=== PATIENT | male | born 1975 | race Caucasian/White ===

== ENCOUNTER → 2023-03-30 11:25 | Outpatient (BNVA) | payer MEDICAID, SELFPAY | PROVIDERS: Visit Provider Nurse Practitioner | DX: I25.2 Old myocardial infarction (principal); Z98.1 Arthrodesis status | CPT/HCPCS: 80053; 80061 ==

== ENCOUNTER 2023-04-15 11:34 | Outpatient (CLI) | payer SELFPAY ==
[2023-04-15 12:46] VITALS: BP 133/84; PULSE 118; BMI 27.2
--- NOTE | 2023-04-15 12:47 | ECG_ITS ---
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 Interpretive Statements Lung unchanged pre/post procedure Intraprocedure shortess of breath; Palpitations Symptoms resoled by discharge PROCEDURE: At the baseline, the patient's blood pressure was 128/82 with a heart rate of 81. The baseline electrocardiogram showed normal sinus rhythm with T inversions in lead V1 to V5, II, III and aVF. Nonspecific T wave changes in the lateral leads. Some nonspecific ST changes. The patient exercised for 10 minutes and 37 seconds on a standard Jamie protocol. Patient attained a maximum heart rate of 199 and beats per minute(115% of the maximum predicted heart rate) with a blood pressure at the peak exercise of 166/52 mm Hg. The EKG at the peak exercise revealed nonspecific T wave changes. Occasional PVCs. Patient did not have any chest pain or any significant cardiac arrhythmias with the exercise During the recovery phase, there were no new changes. Occasional PVCs are noted Blood pressure at the end of the recovery phase was 158/60 mm Hg with a heart rate of 126 per minute. CONCLUSION: 1. Nonspecific EKG response to treadmill exercise 2. No exercise-induced chest pain or cardiac arrhythmia 3. Good exercise tolerance, attained a maximum of 13.5 METs 4. The heart rate recovery was 15 Electronically Signed On 04-16-2023 19:56:00 CDT by Azeem Aguilar M.D. [id number]
== END 2023-04-15 11:35 | disposition home or self-care (01) ==
LOC: CDL 11:34
PROVIDERS: PCP Nurse Practitioner; Visit Provider Internal Medicine Cardiovascular Disease
DX: I25.2 Old myocardial infarction (principal)
CPT/HCPCS: 93017

== ENCOUNTER 2023-04-16 13:29 | Observation (INO) | payer SELFPAY ==
[2023-04-16] VITALS (10 sets, daily range): BP systolic 111–164; BP diastolic 70–100; PULSE 78–98; RESP 16–24; TEMP 36.2–36.8; O2SAT 96–100; BMI 27.2
--- NOTE | 2023-04-16 13:35 | ECG_ITS ---
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 Measurements Intervals [place] Rate: 82 P: 33 [place]: 173 QRS: 30 QRSD: 94 T: -37 QT: 413 QTc: 485 Interpretive Statements SINUS RHYTHM MARKED T-WAVE ABNORMALITY, CONSIDER ANTEROLATERAL ISCHEMIA [-0.5+ mV T-WAVE IN I/aVL/V3-V6] MODERATE T-WAVE ABNORMALITY, CONSIDER INFERIOR ISCHEMIA [-0.1+ mV T-WAVE IN II/aVF] INTERPRETATION BASED ON A DEFAULT AGE OF 40 YEARS No previous ECG available for comparison Electronically Signed On 04-16-2023 21:27:24 CDT by Azeem Aguilar M.D. [id number]
[2023-04-16] MEDS: nitroglycerin 1 gm/inch oint Pkt 1 INCH TOPICAL (14:13)
[2023-04-16] MEDS: morphine 4 mg/mL SDV 1 mL IVP (14:13)
[2023-04-16 14:21] LABS: Basophils % 0.5 %; Eosinophils # 0.1 10^3/uL (0.0-0.8); Eosinophils % 0.9 %; Hematocrit 42.4 % (37-53); Lymphocytes # 1.2 10^3/uL (0.8-4.8); Lymphocytes % 20.3 %; Mean Corpuscular HGB Conc 34.2 g/dL (30-55); Mean Corpuscular Hemoglobin 30.1 pg (27-33); Mean Corpuscular Volume 88.1 fl (82-101); Mean Platelet Volume 8.8 fL (7.4-10.4); Monocytes # 0.3 10^3/uL (0.2-0.9); Monocytes % 5.8 %; Neutrophils # 4.25 10^3/uL (1.8-7.7); Neutrophils % 72.3 %; Nucleated Red Blood Cells % 0 %; Platelet Count 373 10^3/cmm (157-399); Red Blood Count 4.81 10^6/uL (3.85-5.65); Red Cell Distribution Width 11.9 % (12.1-15.1); White Blood Count 5.87 10^3/uL (3.29-11.43)
--- NOTE | 2023-04-16 14:25 | CTR_ITS ---
PROCEDURE INFORMATION: Exam: CTA Chest With Contrast CTA Abdomen With Contrast Exam date and time: 04/16/2023 2:57 PM Age: 47 years old Clinical indication: Left-sided; Other: Left sided chest pain; Prior surgery; Surgery date: 3-7 days post-operative; Surgery type: Stents; Additional info: For dissection TECHNIQUE: Imaging protocol: Computed tomographic angiography of the chest with contrast. Exam focused on the arteries. Computed tomographic angiography of the abdomen with contrast. Exam focused on the arteries. 3D rendering (Not supervised by radiologist): MIP and/or 3D reconstructed images were created by the technologist. Radiation optimization: All CT scans at this facility use at least one of these dose optimization techniques: automated exposure control; mA and/or kV adjustment per patient size (includes targeted exams where dose is matched to clinical indication); or iterative reconstruction. Contrast material: OMNI 350; Contrast volume: 100 ml; Contrast route: INTRAVENOUS (IV); REPORTING DATA: Count of CT and Cardiac NM exams in prior 12 months: This patient has received 0 known CTs and 0 known cardiac nuclear medicine studies in the 12 months prior to the current study. COMPARISON: No relevant prior studies available. RADIATION DOSE METRICS: Total DLP (mGy-cm): 964.55 FINDINGS: VASCULATURE: Pulmonary arteries: Normal. No pulmonary emboli. Aorta: No aortic aneurysm. No aortic dissection. Normal variant 4 vessel left aortic arch. Celiac trunk and mesenteric arteries: No occlusion or significant stenosis. Renal arteries: No occlusion or significant stenosis. CHEST: Lungs: No consolidation. No masses. Chronic appearing filling defect within a dilated subsegmental right upper lobe airway with small distal nodules, some of which are calcified. Few additional scattered pulmonary nodules in the right lung, 3 mm right apical nodule on axial image 31 of series 7, 5 mm right apical nodule on axial image 34 of series 7, 6 mm right upper lobe nodule on axial image 60 of series 7, and 5 mm subpleural right middle lobe nodule on axial image 95 of series 7. Pleural spaces: Unremarkable. No pneumothorax. No pleural effusion. Heart: Unremarkable. No cardiomegaly. No pericardial effusion. Coronary arteries: Moderate coronary artery calcification. Diaphragm: Small hiatal hernia. ABDOMEN AND PELVIS: Liver: No mass. Gallbladder and bile ducts: Unremarkable. No calcified stones. No ductal dilation. Pancreas: Unremarkable. No mass. No ductal dilation. Spleen: Unremarkable. No splenomegaly. Adrenal glands: Unremarkable. No mass. Kidneys and ureters: Unremarkable. No solid mass. No hydronephrosis. Stomach and bowel: No dilatation to suggest obstruction. Colonic diverticulosis. Intraperitoneal space: Unremarkable. No free air. No significant fluid collection. Lymph nodes: No suspicious lymphadenopathy. Hyperdense mediastinal and right hilar lymph nodes, likely calcified. Bones/joints: Unremarkable. No acute fracture. Soft tissues: Small fat containing umbilical hernia. Mild wcdp-lynjbgw-nryp-right gynecomastia. CT/[place]d [id number] IMPRESSION: 1. No acute findings. Specifically, no aortic dissection. 2. Moderate coronary artery calcification. 3. Multiple pulmonary nodules measuring up to 6 mm. For patients at low risk (minimal or absent history of smoking and of other known risk factors), recommend CT Chest at 3-6 months, then consider CT Chest at 18-24 months. For patients at high risk (history of smoking or of other known risk factors), recommend CT Chest at 3-6 months, then CT Chest at 18-24 months. (Reference: Cher) REFERENCES: Cher Aleman et al. Guidelines for Management of Incidental Pulmonary Nodules Detected on CT Images: From the Fleischner Society 2017. Radiology. 2017;284(1):228-243.
[2023-04-16 14:31] LABS: INR 0.89 (0.8-1.2)
[2023-04-16 14:32] LABS: Partial Thromboplastin Time 27.2 SECONDS (23.9-36.7)
[2023-04-16 14:35] LABS: D Dimer 0.33 ug/mLFEU (0-0.59)
[2023-04-16 14:44] LABS: Alanine Aminotransferase 35 U/L (0-41); Albumin Level 4.6 g/dL (3.5-5.2); Alkaline Phosphatase 144 U/L (40-130); Aspartate Amino Transferase 22 U/L (0-40); Blood Urea Nitrogen 10 mg/dL (6-20); Calcium 9.8 mg/dL (8.5-10.5); Carbon Dioxide 23 mmol/L (22-29); Chloride 102 mmol/L (98-107); Globulin 3.2 g/dL (1.3-4.6); Glomerular Filtration Rate 103.2 mL/min (90-130); Glucose 140 mg/dL (65-115); Osmolality Calculated 287 mOsm/kg (285-295); Sodium 138 mmol/L (136-145); Total Bilirubin 0.5 mg/dL (0.15-1.2); Total Protein 7.8 g/dL (6.6-8.7)
[2023-04-16 14:45] LABS: Troponin(5th) Baseline 8 ng/L (0-15)
[2023-04-16] MEDS: iohexol 350 mg/mL 500 mL Btl (per mL) IV (15:05)
[2023-04-16] MEDS: LORazepam 2 mg/mL INJ 1 mL IVP (15:22)
--- NOTE | 2023-04-16 16:00 | ECG_ITS ---
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 Measurements Intervals [place] Rate: 87 P: 41 [place]: 185 QRS: 53 QRSD: 109 T: 24 QT: 408 QTc: 492 Interpretive Statements SINUS RHYTHM INCOMPLETE RIGHT BUNDLE BRANCH BLOCK [90+ ms QRS DURATION, TERMINAL R IN V1/V2, 40+ ms S IN I/aVL/V4/V5/V6] MARKED T-WAVE ABNORMALITY, CONSIDER ANTEROLATERAL ISCHEMIA [-0.5+ mV T-WAVE IN I/aVL/V3-V6] MODERATE T-WAVE ABNORMALITY, CONSIDER INFERIOR ISCHEMIA [-0.1+ mV T-WAVE IN II/aVF] Compared to ECG 04/16/2023 13:35:09 Incomplete right bundle-branch block now present T-wave abnormality still present Possible ischemia still present Electronically Signed On 04-16-2023 21:29:40 CDT by Azeem Aguilar M.D. [id number]
--- NOTE | 2023-04-16 16:27 | W.ED.CHESTPA ---
HPI - Chest Pain General: Chief Complaint: Chest Pain Stated Complaint: chest pain Time Seen by Provider: 04/16/23 13:54 History of Present Illness: 47 years old male with recent coronary artery and stent placement about 3 weeks ago while he was in [facility]. Patient presents emergency room today with chest pain that started around noon and described the pain as sharp/tearing sensation from the left side of his chest with severity of 9 out of 10. Patient had been taking aspirin and couple of nitro with minimal effect. Patient reveals that this pain felt the same way he felt when he had his GA 3 weeks ago. Patient with some nausea but no vomiting. Denies coughing or vomiting blood. No leg swelling or calf tenderness. No fever or chills. Associated symptoms: Reports palpitations; Deny fever(s) Review of Systems General: Reports: 10 or more systems reviewed and unremarkable except in HPI and below Const: Denies: fever(s), chills, body aches or change in appetite Card: Reports: chest pain and palpitations Psych: Reports: anxiety; Denies: panic attacks, sleeping less, sleeping more, loss of interest, change in appetite, irritability, visual hallucinations, tactile hallucinations, suicidal ideation or homicidal ideation [facility] ED PFSH: Medical History History of ST elevation myocardial infarction (STEMI) Mar 2023 Surgical History History of fusion of cervical spine C5 and C6 Family History Denies family history of Diabetes Clotting disorder Chronic kidney disease (CKD) Bleeding disorder Cancer Hypertension Stroke Social History Smoking and tobacco/nicotine status: former use of tobacco/nicotine Quit status (tobacco/nicotine): has quit using Year quit tobacco: 2013 Former quit date comment: 0.5 pack per day x 30 years Alcohol intake: current Alcohol intake frequency: few times a week Substance/Drug Use: never Physical Exam Const: COMMON NORMALS: no acute distress, average body habitus, patient oriented x3, no limitations, healthy appearing, alert and well nourished Neck/C-Spine: COMMON NORMALS: no JVD Chest: COMMONS NORMALS: normal inspection of the chest, normal palpation of entire chest wall, normal inspection of the breasts and normal palpation of the breasts Breast/axilla inspection: Yes normal inspection of the breasts BREAST/AXILLA PALPATION: Yes normal palpation of the breasts Resp: COMMON NORMALS: normal respiratory effort, No retractions, No use of accessory muscles, clear to auscultation bilaterally and percussion normal AUSCULTATION: clear to auscultation bilaterally PERCUSSION: percussion normal Cardio: COMMON NORMALS: no JVD, regular rate, regular rhythm, S1 normal heart sound present, S2 normal heart sound present, No gallops present (Cardio), No clicks present (Cardio), No murmurs present (Cardio), No rub (Cardio) and Peripheral pulses 2+ throughout RATE: regular rate RHYTHM: regular rhythm HEART SOUNDS: S1 normal heart sound present and S2 normal heart sound present PERIPHERAL PULSES: Peripheral pulses 2+ throughout GI: COMMON NORMALS: Normal to inspection, nondistended, normoactive bowel sounds present, Soft to palpation, non-tender, No hepatosplenomegaly present, no masses and no bruits PALPATION: Yes Soft to palpation and Yes No hepatosplenomegaly present Extremity: COMMON NORMALS: normal to inspection, full ROM, capillary refill normal, no joint enlargement, no clubbing, cyanosis or edema, no calf tenderness and no pedal edema Neuro: COMMON NORMALS: patient oriented x3 SENSORIUM/ORIENTATION: Yes alert Psych: COMMON NORMALS: Normal thought process present and speech normal APPEARANCE: Yes grossly normal SPEECH: Yes normal speech MOOD & AFFECT: Yes anxious THOUGHT PROCESS: Normal thought process present Course Reevaluation(s): Reevaluation #1: At 4 PM patient was evaluated and reexamined. Patient was resting comfortably at this time on his phone without any acute distress. Denies any chest pain, nausea, vomiting or headache. Consultations: Consultation #1: At 2:06 PM discussed patient with Dr. Aguilar and he recommended heparin drip after CT scan. Consultation #2: At 4 PM discussed patient with the hospitalist. Patient be admitted for further evaluation and treatment. Vital Signs: Vital signs: Vital Signs Temperature 97.8 F 04/16/23 20:00 Pulse Rate 91 04/16/23 20:00 Respiratory Rate 17 04/16/23 20:00 Blood Pressure 111/81 04/16/23 20:00 Pulse Oximetry 96 04/16/23 20:00 Oxygen Delivery Me thod Room Air 04/16/23 20:00 MDM - Chest Pain Medical Decision Making Upon present emergency room patient was made comfortable patient was given aspirin and nitro. Patient was given morphine IV. An extensive work-up including CBC, CMP, troponin x2, CT scan and x-ray. I spoke with Dr. Aguilar at 2:06 PM. He agree with current treatment and recommended getting a CT scan to make sure there is a section. I discussed CT finding with the patient and the hospitalist. She will be admitted for further evaluation and treatment. Differential Diagnosis Likely acute massive pulmonary embolism, acute respiratory failure, acute myocardial infarction, cardiac arrest and sudden cardiac Lab Data 04/16/23 14:11 04/16/23 14:11 Radiology Impressions Chest/Abdomen CTA 04/16/23 14:25 IMPRESSION: 1. No acute findings. Specifically, no aortic dissection. 2. Moderate coronary artery calcification. 3. Multiple pulmonary nodules measuring up to 6 mm. For patients at low risk (minimal or absent history of smoking and of other known risk factors), recommend CT Chest at 3-6 months, then consider CT Chest at 18-24 months. For patients at high risk (history of smoking or of other known risk factors), recommend CT Chest at 3-6 months, then CT Chest at 18-24 months. (Reference: Cher) REFERENCES: Cher Aleman, et al. Guidelines for Management of Incidental Pulmonary Nodules Detected on CT Images: From the Fleischner Society 2017. Radiology. 2017;284(1):228-243. Laboratory Results WBC 5.87 10^3/uL (3.29-11.43) 04/16/23 14:11 RBC 4.81 10^6/uL (3.85-5.65) 04/16/23 14:11 Hgb 14.50 g/dL (11.27-16.99) 04/16/23 14:11 Hct 42.4 % (37-53) 04/16/23 14:11 MCV 88.1 fl (82-101) 04/16/23 14:11 MCH 30.1 pg (27-33) 04/16/23 14:11 MCHC 34.2 g/dL (30-55) 04/16/23 14:11 RDW 11.9 % (12.1-15.1) L 04/16/23 14:11 Plt Count 373 10^3/cmm (157-399) 04/16/23 14:11 MPV 8.8 fL (7.4-10.4) 04/16/23 14:11 Neut % (Auto) 72.3 % 04/16/23 14:11 Lymph % (Auto) 20.3 % 04/16/23 14:11 [place] % (Auto) 5.8 % 04/16/23 14:11 Eos % (Auto) 0.9 % 04/16/23 14:11 Baso % (Auto) 0.5 % 04/16/23 14:11 Neut # (Auto) 4.25 10^3/uL (1.8-7.7) 04/16/23 14:11 Lymph # (Auto) 1.2 10^3/uL (0.8-4.8) 04/16/23 14:11 [place] # (Auto) 0.3 10^3/uL (0.2-0.9) 04/16/23 14:11 Eos # (Auto) 0.1 10^3/uL (0.0-0.8) 04/16/23 14:11 Baso # (Auto) 0.0 10^3/uL (0.0-0.1) 04/16/23 14:11 Nucleated RBC % (auto) 0 % 04/16/23 14:11 Nucleated RBCs # 0.0 /100WBC 04/16/23 14:11 PT 12.30 SECONDS (12.1-14.9) 04/16/23 14:11 INR 0.89 (0.8-1.2) 04/16/23 14:11 APTT 27.2 SECONDS (23.9-36.7) 04/16/23 14:11 D-Dimer 0.33 ug/mLFEU (0-0.59) 04/16/23 14:11 Sodium 138 mmol/L (136-145) 04/16/23 14:11 Potassium 4.0 mmol/L (3.5-5.1) 04/16/23 14:11 Chloride 102 mmol/L (98-107) 04/16/23 14:11 Carbon Dioxide 23 mmol/L (22-29) 04/16/23 14:11 Anion Gap 17.0 (5-19) 04/16/23 14:11 BUN 10 mg/dL (6-20) 04/16/23 14:11 Creatinine 0.8 mg/dL (0.7-1.2) 04/16/23 14:11 GFR Calculation 103.2 mL/min (90-130) 04/16/23 14:11 Glucose 140 mg/dL (65-115) H 04/16/23 14:11 Calculated Osmolality 287 mOsm/kg (285-295) 04/16/23 14:11 Calcium 9.8 mg/dL (8.5-10.5) 04/16/23 14:11 Magnesium 2.2 mg/dL (1.7-2.3) 04/16/23 16:09 Total Bilirubin 0.5 mg/dL (0.15-1.2) 04/16/23 14:11 AST 22 U/L (0-40) 04/16/23 14:11 ALT 35 U/L (0-41) 04/16/23 14:11 Alkaline Phosphatase 144 U/L (40-130) H 04/16/23 14:11 Troponin T Baseline 8 ng/L (0-15) 04/16/23 14:11 Troponin T 120 Minute 8.63 ng/L (0-15) 04/16/23 16:09 Delta Troponin T 0.63 ABS# (0-10) 04/16/23 16:09 Total Protein 7.8 g/dL (6.6-8.7) 04/16/23 14:11 Albumin 4.6 g/dL (3.5-5.2) 04/16/23 14:11 Globulin 3.2 g/dL (1.3-4.6) 04/16/23 14:11 XR interpretation done by ED provider, pending radiology final review EKG Data EKG 1: Interpretation: EKG shows sinus rhythm rate of 82. With some flipped T wave in V2 V4 V5 and V3. Interval 173 QTc 413 EKG 2: Interpretation: Sinus rhythm rate of [address] changes including T wave inversion IV for V2 V5 V3. [place] interval 181 QT 453 EKG 3: Interpretation: Sinus rhythm rate of 87 with incomplete right bundle branch block with T wave inversion at V2 V3 V4 V5. No ST elevation. [place] interval 185 QT 4 8 QRS duration 109. Critical Care Time Critical Care Time: Critical Care Time: Yes Total Critical Care Time: 45 Attestation: Time spent discussing patient with family time spent reviewing past medical history and records. 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
[2023-04-16] MEDS: heparin 5,000 unit/mL INJ 1 mL 4000 UNIT IVP (17:02)
[2023-04-16] MEDS: heparin drip 25,000 UNIT/500 ML PREMIX 20.68 UNIT IV (17:03)
[2023-04-16 17:25] LABS: Troponin 5 2HR 8.63 ng/L (0-15); Troponin 5 2HR Delta 0.63 ABS# (0-10)
--- NOTE | 2023-04-16 17:59 | PM.HP ---
Providers/Chief Complaint Admitting Physician: Matty Hammer Primary Care Provider: Winter Modi APN Chief Complaint: chest pain History of Present Illness Armond Crawford is a 47 year old male with history of HI on March 26 status post coronary angiogram and stenting of LAD, there were reportedly 2 additional stenosed vessels which did not get stented, though it is unclear whether staged procedure was planned. He followed up with cardiology here on April 06 as he was still having symptoms, was referred for additional assessment by stress testing which she had yesterday. He states has not gotten the results of the stress test yet. He came into ER due to concerning symptoms of squeezing in his left-sided chest radiating to the neck. He states symptoms started with palpitations, subsequently his heart felt like it was racing and he started feeling tingling in his extremities. He then felt like there was a vessel that ruptured and started whooshing blood just to help with steroid him, and he became concerned that there something had ruptured. He did take nitroglycerin. He states he had not missed any of his medications other than holding beta-maddie preceding the stress test. He received additional nitroglycerin in ER. Cardiology was contacted, he was started on heparin drip due to concern for unstable angina. At the moment he is chest pain-free. Work-up in ER included CT angiogram chest abdomen pelvis, findings nonacute, no dissection, moderate coronary artery calcification. Multiple pulmonary nodules measuring up to 6 mm. EKG with incomplete RBBB, T wave inversions in multiple leads. Baseline troponin is WNL Review of Systems Const: Denies: fever(s), chills, body aches or malaise ENMT: Denies: throat pain, oral sores or ear or mastoid pain Card: Reports: chest pain, palpitations and lightheadedness Resp: Denies: dyspnea, productive cough, change in phlegm color or hemoptysis GI: Denies: nausea, vomiting, diarrhea or constipation : Denies: flank pain, difficulty urinating, urinary frequency or hematuria Musc: Denies: back pain, joint swelling or joint redness Skin/Breast: Denies: rash or new lesions Medications/Allergies Home Medications Medication Instructions Recorded Confirmed Last Taken Type aspirin 81 mg tablet,delayed 81 mg PO DAILY 03/30/23 04/06/23 Unknown History release (Adult Aspirin Regimen) atorvastatin 80 mg tablet 80 mg PO DAILY 03/30/23 04/06/23 Unknown History clopidogrel 75 mg tablet 75 mg PO DAILY 03/30/23 04/06/23 Unknown History cyclobenzaprine 5 mg tablet 5 mg PO BEDTIME PRN muscle spasm 03/30/23 04/06/23 Unknown Rx #30 tabs metoprolol succinate 50 mg 50 mg PO DAILY 03/30/23 04/06/23 Unknown History tablet,extended release 24 hr nitroglycerin 0.4 mg sublingual 0.4 mg sublingual Q5M PRN chest 03/30/23 04/06/23 Unknown Rx tablet pain #30 tabs Allergies Allergy/AdvReac Type Severity Reaction Status Date / Time gold Au 198 Allergy Unknown Unknown Unverified 04/16/23 18:40 silver Allergy Unknown Unknown Unverified 04/16/23 18:40 PFSH Acute PFSH: Medical History History of ST elevation myocardial infarction (STEMI) Mar 2023 Surgical History History of fusion of cervical spine C5 and C6 Family History Denies family history of Diabetes Clotting disorder Chronic kidney disease (CKD) Bleeding disorder Cancer Hypertension Stroke Social History Smoking and tobacco/nicotine status: former use of tobacco/nicotine Quit status (tobacco/nicotine): has quit using Year quit tobacco: 2013 Former quit date comment: 0.5 pack per day x 30 years Alcohol intake: current Alcohol intake frequency: few times a week Substance/Drug Use: never Vitals/I&O/Wt Last Vital Signs Temp 98.3 F 04/16/23 13:38 Pulse 83 04/16/23 15:00 Resp 16 04/16/23 15:00 BP 164/100 04/16/23 14:12 Pulse Ox 100 04/16/23 14:30 O2 Del Method Room Air 04/16/23 13:38 Weight last 48 hrs Weight 86.183 kg Physical Exam Narrative: Accompanied by family. Const: COMMON NORMALS: patient oriented x3 and alert GENERAL APPEARANCE: cooperative ORIENTATION/CONSCIOUSNESS: Yes awake HENMT: COMMON NORMALS: oropharynx normal Neck/C-Spine: COMMON NORMALS: no JVD Resp: COMMON NORMALS: normal respiratory effort and clear to auscultation bilaterally AUSCULTATION: clear to auscultation bilaterally Cardio: COMMON NORMALS: no JVD, regular rhythm, S1 normal heart sound present, S2 normal heart sound present and No murmurs present (Cardio) RHYTHM: regular rhythm HEART SOUNDS: S1 normal heart sound present and S2 normal heart sound present GI: COMMON NORMALS: Normal to inspection, nondistended, normoactive bowel sounds present, Soft to palpation and non-tender PALPATION: Yes Soft to palpation Extremity: COMMON NORMALS: no joint enlargement and no pedal edema Neuro: COMMON NORMALS: patient oriented x3 and moves all extremities SENSORIUM/ORIENTATION: Yes alert Skin: COMMON NORMALS: no rashes or lesions noted GENERAL SKIN EXAM: no rashes or lesions noted Data 04/16/23 14:11 04/16/23 14:11 A&P Assessment and plan (1) Chest tightness: Squeezing, tightness in the left side of the chest, with history of recent HI at the end of March, stenting of LAD, additional stenotic areas identified, not stented at the time. Symptoms may have started with palpitations. He has been started on heparin drip with concern for unstable angina. Continue on aspirin and plavix, did not miss any doses. We will additionally assessed by TTE. Cardiology consulted in ER for consideration of additional assessment. N.p.o. after midnight with consideration of possible of angiogram. Continue heparin drip, monitor PTT with high risk medication, risk of bleeding. Otherwise D-dimer low. Low probability of PE. CT angiogram not suggestive of dissection or other large vessel abnormality. Monitor on telemetry for possible arrhythmia. Continue metoprolol. Nitroglycerin as needed. Requested records to be obtained from [facility]. Reviewed CBC, CMP, PT/INR, D-dimer, troponin. EKG. CTA chest abdomen pelvis. Reviewed ER documentation. Discussed with ER physician. (2) Palpitations: As above. Monitor on telemetry. Potassium okay. Check magnesium. TTE (3) Lung nodules: Multiple lung nodules noted on CT with recommendation for follow-up imaging. He has history of smoking. Attestations Medical Necessity Statement*: Place in observation for additional assessment and management of possible unstable angina and gentleman with recent HI, stenting of LAD, additional areas of stenosis, palpitations. Diagnoses Chest tightness R07.89 Palpitations R00.2 Lung nodules R91.8
--- NOTE | 2023-04-16 19:22 | PM.CONSULT ---
Providers/Reason For Consult Consulting Physician/Specialty*: PATRICIA Aguilar MD/cardiology Reason for Consult*: Patient with chest pain/tachycardia/history of recent myocardial infarction and PCI Requesting Physician: Dr. Hammer Attending Physician: Matty Hammer Primary Care Provider: Winter Modi APN History of Present Illness History of Present Illness Armond Crawford is a 47 year old male with a history of recent myocardial infarction and PCI, is admitted to the hospital through the emergency room, where he presented with complaints of chest pain and palpitations. Cardiology consult is requested for further evaluation recommendations. This patient apparently has no significant past medical history, was told to have heart attack 3 weeks ago while he was working in [facility]. He apparently started having heartburns which evolved into severe pain in the chest radiating to the left shoulder and to the left arm associated with shortness of breath and some dizziness. He had a emergency cardiac catheterization in the hospital which revealed high-grade lesion in the left anterior descending artery. He underwent PCI of this lesion. He was told to have a 70% blockage in another artery and a 91% blockage in one of the side branches. The details are not available. Ever since the intervention, patient continued to have some fluttering in the chest and occasional squeezing feeling. That may last for few seconds to few minutes and goes away by itself. He was seen by Dr. 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 Dr. Messer ordered a regular treadmill stress test and it was done yesterday. He exercised for 10 minutes and 37 seconds on a standard Jamie protocol. He attained to 115% of the maximal predicted heart rate. The EKG at the baseline showed diffuse T wave Inversions in the inferior and anterolateral leads.With peak exercise, there is no significant change in the EKG. according to the patient, he felt good after the exercise. This morning he was having a coffee and was playing videogames. He started having some dizzy feeling in the head associated with a fluttery feeling in the chest. He also had some squeezing sensation in the chest. The intensity of the symptoms were 1-4/10. He gradually started having more palpitations and squeezing sensation in the chest associated with some nausea and sweating. For these complaints, the ambulance was called in and was brought to the emergency room. So far he has no evidence of any myocardial injury. He is EKGs did not reveal any new changes. Currently, at the time of my examination, patient is feeling much better. He still may have some discomfort in the chest which is graded as 1/10. Patient had a cardiac catheterization and echocardiogram in [facility]. The results are not available at this time. Patient does not know much about his family. Apparently his mother after childbirth. He never knew his father. He has a remote history of smoking abuse, half to 1 pack a day which he quit 10 years ago. Social drinking. No other substance abuse. Review of Systems Narrative: CONSTITUTIONAL: No fever or chills. EYES: No blurring of vision or other visual disturbances lately. ENT: No hoarseness of voice, auditory disturbances or sore throat. CARDIOVASCULAR: As mentioned above. RESPIRATORY: No significant cough. GASTROINTESTINAL: No hematemesis or melena. GENITOURINARY: No dysuria or hematuria. INTEGUMENTARY: No skin rashes or history of skin cancer. NEURO: No transient ischemic attacks or amaurosis. PSYCHIATRIC: No history of psychosis or major depression. HEMATOLOGIC: No bleeding disorders or significant anemia. ENDOCRINE: No history of polyuria or polydipsia. MUSCULOSKELETAL: Patient had fusion of the cervical spine-C4-C5 and has chronic pain ALLERGY/IMMUNOLOGY: As mentioned above. Medications/Allergies Home Medications Medication Instructions Recorded Confirmed Last Taken Type aspirin 81 mg tablet,delayed 243 mg PO DAILY 03/30/23 04/16/23 04/16/23 13:00 History release (Adult Aspirin Regimen) atorvastatin 80 mg tablet 80 mg PO DAILY 03/30/23 04/16/23 04/16/23 14:00 History clopidogrel 75 mg tablet 75 mg PO DAILY 03/30/23 04/16/23 04/16/23 14:00 History cyclobenzaprine 5 mg tablet 5 mg PO BEDTIME PRN muscle spasm 03/30/23 04/16/23 Unknown Rx #30 tabs metoprolol succinate 50 mg 50 mg PO DAILY 03/30/23 04/16/23 04/16/23 14:00 History tablet,extended release 24 hr nitroglycerin 0.4 mg sublingual 0.4 mg sublingual Q5M PRN chest 03/30/23 04/16/23 04/16/23 13:00 Rx tablet pain #30 tabs Allergies Allergy/AdvReac Type Severity Reaction Status Date / Time gold Au 198 Allergy Unknown Unknown Unverified 04/16/23 18:40 silver Allergy Unknown Unknown Unverified 04/16/23 18:40 Current Medications Generic Name Dose Route Start Last Admin Trade Name Freq PRN Reason Stop Dose Admin Heparin Sodium/Sodium Chloride 25,000 unit in 500 mls @ 24.131 mls/hr 04/16/23 16:30 04/16/23 17:03 Heparin Drip IV 12 unit/kg/hr .[id number] NATHALIE 20.68 mls/hr Administration 14 UNIT/KG/HR PFSH Acute PFSH: Medical History History of ST elevation myocardial infarction (STEMI) Mar 2023 Surgical History History of fusion of cervical spine C5 and C6 Family History Denies family history of Diabetes Clotting disorder Chronic kidney disease (CKD) Bleeding disorder Cancer Hypertension Stroke Social History Smoking and tobacco/nicotine status: former use of tobacco/nicotine Quit status (tobacco/nicotine): has quit using Year quit tobacco: 2013 Former quit date comment: 0.5 pack per day x 30 years Alcohol intake: current Alcohol intake frequency: few times a week Substance/Drug Use: never Vitals/I&O/Wt Last Vital Signs Temp 98.3 F 04/16/23 13:38 Pulse 78 04/16/23 18:06 Resp 18 04/16/23 18:06 BP 164/100 04/16/23 14:12 Pulse Ox 98 04/16/23 18:06 O2 Del Method Room Air 04/16/23 13:38 Weight last 48 hrs Weight 190 lb Physical Exam Narrative: GENERAL: The patient is alert and oriented times three. Not in any acute distress. HEENT: No significant pallor, icterus or lymphadenopathy.Oral cavity: There are no mucous membrane lesions. NECK: Trachea appears to be central. No masses noted. No JVD or thyromegaly appreciated. RESPIRATORY: Chest is symmetrical. No intercostals muscle retraction or any accessory muscle activation. There is no chest wall tenderness. Breath sounds are heard bilaterally. No rales or rhonchi heard. No evidence of any consolidation. BREASTS: Deferred. HEART: The heart sounds are normal. No S3 or S4. No significant murmurs. No pericardial rub ABDOMEN: No vessel pulsations or distention. No tenderness. No organomegaly appreciated. Bowel sounds are normally heard. : Deferred. RECTAL: Deferred. LYMPHATIC: No lymphadenopathy noted in the neck. EXTREMITIES: No edema or cyanosis. No clubbing. He has a small knot in the right groin. No bruit MUSCULOSKELETAL: No acute joint deformities or swelling SKIN: There are no significant rashes or ecchymosis NEUROPSYCHIATRIC: The patient is alert and oriented x3. Appears to be in a good mood. No tremors or rigidity noted. Data 04/16/23 14:11 04/16/23 14:11 Other Labs: Laboratory Last Values WBC 5.87 10^3/uL (3.29-11.43) 04/16/23 14:11 RBC 4.81 10^6/uL (3.85-5.65) 04/16/23 14:11 Hgb 14.50 g/dL (11.27-16.99) 04/16/23 14:11 Hct 42.4 % (37-53) 04/16/23 14:11 MCV 88.1 fl (82-101) 04/16/23 14:11 MCH 30.1 pg (27-33) 04/16/23 14:11 MCHC 34.2 g/dL (30-55) 04/16/23 14:11 RDW 11.9 % (12.1-15.1) L 04/16/23 14:11 Plt Count 373 10^3/cmm (157-399) 04/16/23 14:11 MPV 8.8 fL (7.4-10.4) 04/16/23 14:11 Neut % (Auto) 72.3 % 04/16/23 14:11 Lymph % (Auto) 20.3 % 04/16/23 14:11 [place] % (Auto) 5.8 % 04/16/23 14:11 Eos % (Auto) 0.9 % 04/16/23 14:11 Baso % (Auto) 0.5 % 04/16/23 14:11 Neut # (Auto) 4.25 10^3/uL (1.8-7.7) 04/16/23 14:11 Lymph # (Auto) 1.2 10^3/uL (0.8-4.8) 04/16/23 14:11 [place] # (Auto) 0.3 10^3/uL (0.2-0.9) 04/16/23 14:11 Eos # (Auto) 0.1 10^3/uL (0.0-0.8) 04/16/23 14:11 Baso # (Auto) 0.0 10^3/uL (0.0-0.1) 04/16/23 14:11 Nucleated RBC % (auto) 0 % 04/16/23 14:11 Nucleated RBCs # 0.0 /100WBC 04/16/23 14:11 PT 12.30 SECONDS (12.1-14.9) 04/16/23 14:11 INR 0.89 (0.8-1.2) 04/16/23 14:11 APTT 27.2 SECONDS (23.9-36.7) 04/16/23 14:11 D-Dimer 0.33 ug/mLFEU (0-0.59) 04/16/23 14:11 Sodium 138 mmol/L (136-145) 04/16/23 14:11 Potassium 4.0 mmol/L (3.5-5.1) 04/16/23 14:11 Chloride 102 mmol/L (98-107) 04/16/23 14:11 Carbon Dioxide 23 mmol/L (22-29) 04/16/23 14:11 Anion Gap 17.0 (5-19) 04/16/23 14:11 BUN 10 mg/dL (6-20) 04/16/23 14:11 Creatinine 0.8 mg/dL (0.7-1.2) 04/16/23 14:11 GFR Calculation 103.2 mL/min (90-130) 04/16/23 14:11 Glucose 140 mg/dL (65-115) H 04/16/23 14:11 Calculated Osmolality 287 mOsm/kg (285-295) 04/16/23 14:11 Calcium 9.8 mg/dL (8.5-10.5) 04/16/23 14:11 Magnesium 2.2 mg/dL (1.7-2.3) 04/16/23 16:09 Total Bilirubin 0.5 mg/dL (0.15-1.2) 04/16/23 14:11 AST 22 U/L (0-40) 04/16/23 14:11 ALT 35 U/L (0-41) 04/16/23 14:11 Alkaline Phosphatase 144 U/L (40-130) H 04/16/23 14:11 Troponin T Baseline 8 ng/L (0-15) 04/16/23 14:11 Troponin T 120 Minute 8.63 ng/L (0-15) 04/16/23 16:09 Delta Troponin T 0.63 ABS# (0-10) 04/16/23 16:09 Total Protein 7.8 g/dL (6.6-8.7) 04/16/23 14:11 Albumin 4.6 g/dL (3.5-5.2) 04/16/23 14:11 Globulin 3.2 g/dL (1.3-4.6) 04/16/23 14:11 Other data: EKG shows sinus rhythm with diffuse to inversions in the anterolateral leads. Nonspecific T wave changes in the other leads. Incomplete right bundle branch block pattern. Regular treadmill exercise stress test on 04/15/2023 1.? Nonspecific EKG response to treadmill exercise 2.? No exercise-induced chest pain or cardiac arrhythmia 3.? Good exercise tolerance, attained a maximum of 13.5 METs 4.? The heart rate recovery was 15 CT of the chest today 1. ? No acute findings. Specifically, no aortic dissection. 2. ? Moderate coronary artery calcification. 3. ? Multiple pulmonary nodules measuring up to 6 mm. For patients at low risk (minimal or absent history of smoking and of other known risk factors), recommend CT Chest at 3-6 months, then consider CT Chest at 18-24 months. For patients at high risk (history of smoking or of other known risk factors), recommend CT Chest at 3-6 months, then CT Chest at 18-24 months. (Reference: [facility] A&P Assessment and plan (1) Atherosclerotic heart disease of [place] coronary artery with other forms of angina pectoris: Patient's chest symptoms are somewhat atypical. Possibility of coronary ischemia causing this is a consideration. I will try to get the medical records from the hospital in [facility]. After reviewing the angiogram results and also based on the patient's clinical progress, further recommendations will be made. (2) Recent myocardial infarction: The patient's LV function is not known at this point. He had an echocardiogram in the previous hospital. After reviewing the records, further recommendations will be made. (3) Ventricular arrhythmia: Patient is on metoprolol. I may add Mag-Tab SR 84 mg 2 tablets daily. He will be closely monitored on telemetry. (4) Dyslipidemia: May continue on the current medications. Plan Other problems are History of cervical fusion and chronic neck pain Remote history of smoking abuse Based on the patient's clinical progress and the results of the above, further recommendations will be made. Thank you for the opportunity to evaluate this patient and make these recommendations Coding Level of Care Code 61333 Diagnoses Atherosclerotic heart disease of [place] coronary artery with other forms of angina pectoris I25.118 Recent myocardial infarction Ventricular arrhythmia I49.9 Dyslipidemia E78.5
[2023-04-16 19:23] LABS: Magnesium 2.2 mg/dL (1.7-2.3)
--- NOTE | 2023-04-16 20:00 | ECG_ITS ---
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 Measurements Intervals [place] Rate: 82 P: 45 LA: 186 QRS: 61 QRSD: 97 T: 74 QT: 418 QTc: 490 Interpretive Statements SINUS RHYTHM WITH SINUS ARRHYTHMIA POSSIBLE RIGHT VENTRICULAR CONDUCTION DELAY [RSR (QR) IN V1/V2] MARKED T-WAVE ABNORMALITY, CONSIDER ANTEROLATERAL ISCHEMIA [-0.5+ mV T-WAVE IN I/aVL/V3-V6] Compared to ECG 04/16/2023 16:20:38 Incomplete right bundle-branch block no longer present T-wave abnormality still present Possible ischemia still present Electronically Signed On 04-16-2023 21:30:16 CDT by Azeem Aguilar M.D. [email or web address]
[2023-04-16 20:43] LABS: Troponin 5 6HR 9.25 ng/L (0-15); Troponin 5 6HR Delta 1.25 ng/L (0-12)
[2023-04-16] MEDS: magnesium lactate 84 mg Tablet 168 MG PO (21:46)
[2023-04-16] MEDS: temazepam 15 mg Capsule PO (21:48)
[2023-04-16 23:35] LABS: Partial Thromboplastin Time 103.2 SECONDS (23.9-36.7)
[2023-04-17 05:43] LABS: Basophils % 0.6 %; Eosinophils # 0.1 10^3/uL (0.0-0.8); Eosinophils % 2.7 %; Hematocrit 39.4 % (37-53); Lymphocytes # 1.4 10^3/uL (0.8-4.8); Lymphocytes % 30.3 %; Mean Corpuscular HGB Conc 33.8 g/dL (30-55); Mean Corpuscular Hemoglobin 30.7 pg (27-33); Mean Platelet Volume 8.9 fL (7.4-10.4); Monocytes # 0.5 10^3/uL (0.2-0.9); Monocytes % 9.7 %; Neutrophils # 2.69 10^3/uL (1.8-7.7); Neutrophils % 56.5 %; Nucleated Red Blood Cells % 0 %; Platelet Count 305 10^3/cmm (157-399); Red Blood Count 4.33 10^6/uL (3.85-5.65); Red Cell Distribution Width 12.3 % (12.1-15.1); White Blood Count 4.76 10^3/uL (3.29-11.43)
[2023-04-17 05:58] LABS: Alanine Aminotransferase 30 U/L (0-41); Albumin Level 3.9 g/dL (3.5-5.2); Alkaline Phosphatase 111 U/L (40-130); Anion Gap 11.9 (5-19); Aspartate Amino Transferase 20 U/L (0-40); Blood Urea Nitrogen 14 mg/dL (6-20); Carbon Dioxide 25 mmol/L (22-29); Chloride 101 mmol/L (98-107); Globulin 2.8 g/dL (1.3-4.6); Glomerular Filtration Rate 103.2 mL/min (90-130); Glucose 105 mg/dL (65-115); Osmolality Calculated 279 mOsm/kg (285-295); Potassium 3.9 mmol/L (3.5-5.1); Sodium 134 mmol/L (136-145); Total Bilirubin 0.5 mg/dL (0.15-1.2); Total Protein 6.7 g/dL (6.6-8.7)
[2023-04-17 06:00] VITALS: PULSE 63
--- NOTE | 2023-04-17 06:00 | USCV_ITS ---
ElielArmond castañeda Age: 47 Gender: M : 1975 Exam Date: 04/17/2023 06:26 Ordering Phys: Matty Hammer MD Technologist: Albino Harmon Exam Location: [facility] [place] Indication: Chest pain BP: 123 / 70 HR: 78 Rhythm: Sinus Technical Quality: Adequate MEASUREMENTS (Male / Female) Normal Values 2D ECHO LVOT Diameter 2.0 cm LV Ejection Fraction MOD 2C 64.8 % LV Ejection Fraction 2C AL 65.6 % LA Diameter 3.5 cm LA Width 3.0 cm LA Height 4.9 cm RA Width 3.5 cm RA Height 4.8 cm Aorta at Sinotubular Diameter 2.6 cm IVC Diameter 1.7 cm M-MODE Aortic Annulus Diameter 2.9 cm LA Ao Ratio MM 1.2 MV E Point Septal Separation 0.3 cm DOPPLER AV Peak Velocity 110.7 cm/s LVOT Peak Velocity 120.0 cm/s AV Area Cont Eq vti 3.2 cm squared AV Area Cont Eq pk 3.4 cm squared MV Peak Velocity 90.0 cm/s MV Area PHT 5.0 cm squared Mitral E to A Ratio 0.7 MV E' Velocity 28.0 cm/s Mitral E to MV E' Ratio 8.4 Mitral E to LV E' Lateral Ratio 8.2 Mitral E to LV E' Septal Ratio 8.9 TR Peak Velocity 164.6 cm/s TR Peak Gradient 10.8 mmHg TR Mean Velocity 127.8 cm/s TR Mean Gradient 8.1 mmHg TR Velocity Time Integral 45.0 cm Right Atrial Pressure 3.0 mmHg Pulmonary Artery Systolic Pressu 13.8 mmHg PV Peak Velocity 71.0 cm/s RV Acceleration Time 0.1 s RV Ejection Time 0.3 s RV AcT/ET 0.5 FINDINGS Left Ventricle Normal LV size ejection fraction of 64%. Relative hypokinesia of the mid and apical septal segments.Grade I/IV diastolic dysfunction (abnormal relaxation filling pattern), normal to mildly elevated filling pressures. Right Ventricle The right ventricle is normal in size and function. Right Atrium The right atrium is normal in size. Left Atrium The left atrium is normal in size. Mitral Valve No gross abnormalities noted Aortic Valve No gross abnormalities noted Tricuspid Valve Trace tricuspid valve regurgitation. Pulmonic Valve No gross abnormalities noted Pericardium Normal pericardium without effusion. Aorta Normal ascending aorta dimension. IVC Normal inferior vena cava. CONCLUSIONS EPSNormal LV size ejection fraction of 64%. Relative hypokinesia of the mid and apical septal segments.Grade I/IV diastolic dysfunction (abnormal relaxation filling pattern), normal to mildly elevated filling pressures. Trace tricuspid valve regurgitation. Estimated pulmonary artery peak systolic pressure within normal limits There is no pericardial effusion. There are no intracardiac masses. No similar previous studies are available for comparison Dr Azeem Aguilar MD [facility] (Electronically Signed) Final Date: 17 April 2023 10:04 S
[2023-04-17 07:31] VITALS: BP 121/80; PULSE 79; RESP 20
[2023-04-17 08:17] VITALS: BP 119/85; PULSE 67; RESP 26; TEMP 36.7; O2SAT 93
[2023-04-17] MEDS: aspirin 81 mg EC Tablet PO (08:50)
[2023-04-17] MEDS: magnesium lactate 84 mg Tablet 168 MG PO (08:51)
[2023-04-17] MEDS: clopidogrel 75 mg Tablet PO (08:51)
[2023-04-17] MEDS: metoprolol succinate ER (24 HR) 50 mg Tablet PO (08:51)
[2023-04-17] MEDS: atorvastatin 40 mg Tablet PO (08:51)
--- NOTE | 2023-04-17 10:50 | P.DS_ITS ---
Discharge Providers Date of Admission: 04/16/23 16:22 Date of Discharge: April 17, 2023 Attending Provider at Admission: Matty Hammer Attending Provider at Discharge: Matty Hammer Primary Care Provider: Winter Modi APN Diagnoses at Discharge Discharge Diagnosis (1) Atherosclerotic heart disease of [place] coronary artery with other forms of angina pectoris: Status: Acute (2) Recent myocardial infarction: Status: Acute (3) Ventricular arrhythmia: Status: Acute (4) Dyslipidemia: Status: Acute Reason for Visit Reason for Visit: chest pain Brief History: Armond Crawford is a 47 year old male with history of CT on March 26 status post coronary angiogram and stenting of LAD, there were reportedly 2 additional stenosed vessels which did not get stented, though it is unclear whether staged procedure was planned.? He followed up with cardiology here on April 06 as he was still having symptoms, was referred for additional assessment by stress testing which she had yesterday.? He states has not gotten the results of the stress test yet.? He came into ER due to concerning symptoms of squeezing in his left-sided chest radiating to the neck.? He states symptoms started with palpitations, subsequently his heart felt like it was racing and he started feeling tingling in his extremities.? He then felt like there was a vessel that ruptured and started whooshing blood just to help with steroid him, and he became concerned that there something had ruptured.? He did take nitroglycerin. He states he had not missed any of his medications other than holding beta- maddie preceding the stress test. He received additional nitroglycerin in ER.? Cardiology was contacted, he was started on heparin drip due to concern for unstable angina.? At the moment he is chest pain-free. Work-up in ER included CT angiogram chest abdomen pelvis, findings nonacute, no dissection, moderate coronary artery calcification.? Multiple pulmonary nodules measuring up to 6 mm. EKG with incomplete RBBB, T wave inversions in multiple leads.? Baseline troponin is WNL Hospital Course Hospital Course Troponin series completed, without rise. He was monitored on telemetry, without recurrence of arrhythmia. He has had no recurrence of palpitations or chest pains/pressure. He had not been on metoprolol for 6 days prior to the stress test which may have contributed to his symptoms, possible episode of tachycardia. Echocardiogram obtained, noted unchanged from prior. She is discussed with cardiology and they have considered angiography, however, found at this point risks would outweigh potential benefit. He does know to return to hospital in case of recurrence of any symptoms. 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 He is made aware OF the incidental finding of pulmonary nodules mostly in the right lung, up to 6 mm in size, he is to follow-up with PCP for additional with regards to these and arrangement for follow-up CTs. Physical Exam Narrative: Ambulated in the hallway without any issues. Const: COMMON NORMALS: patient oriented x3 and alert GENERAL APPEARANCE: cooperative ORIENTATION/CONSCIOUSNESS: Yes awake HENMT: COMMON NORMALS: oropharynx normal Neck/C-Spine: COMMON NORMALS: no JVD Resp: COMMON NORMALS: normal respiratory effort and clear to auscultation bilaterally AUSCULTATION: clear to auscultation bilaterally Cardio: COMMON NORMALS: no JVD, regular rhythm, S1 normal heart sound present, S2 normal heart sound present and No murmurs present (Cardio) RHYTHM: regular rhythm HEART SOUNDS: S1 normal heart sound present and S2 normal heart sound present GI: COMMON NORMALS: Normal to inspection, nondistended, normoactive bowel sounds present, Soft to palpation and non-tender PALPATION: Yes Soft to palpation Extremity: COMMON NORMALS: no joint enlargement and no pedal edema Neuro: COMMON NORMALS: patient oriented x3 and moves all extremities SENSORIUM/ORIENTATION: Yes alert Skin: COMMON NORMALS: no rashes or lesions noted GENERAL SKIN EXAM: no rashes or lesions noted Discharge Data Studies Completed and Pending Completed Studies During Hospitalization Category Date Time Status CTA chest abdomen [CT angio chest abd [id number]] Stat Cat Scan 04/16/23 14:25 Completed CV. echo complete* [id number] Routine Ultrasound 04/17/23 06:00 Completed Pending at discharge Category Date Time Status Complete Blood Count w/Auto AM LABS Lab 04/18/23 04:00 Ordered Complete Blood Count w/Auto AM LABS Lab 04/19/23 04:00 Ordered Comprehensive Metabolic Panel AM LABS Lab 04/18/23 04:00 Ordered Comprehensive Metabolic Panel AM LABS Lab 04/19/23 04:00 Ordered Platelet Count Q2D Lab 04/18/23 04:00 Ordered Platelet Count Q2D Lab 04/20/23 04:00 Ordered Radiology Impressions Chest/Abdomen CTA 04/16/23 14:25 IMPRESSION: 1. No acute findings. Specifically, no aortic dissection. 2. Moderate coronary artery calcification. 3. Multiple pulmonary nodules measuring up to 6 mm. For patients at low risk (minimal or absent history of smoking and of other known risk factors), recommend CT Chest at 3-6 months, then consider CT Chest at 18-24 months. For patients at high risk (history of smoking or of other known risk factors), recommend CT Chest at 3-6 months, [address] Chest at 18-24 months. (Reference: Cher) REFERENCES: Cher Aleman et al. Guidelines for Management of Incidental Pulmonary Nodules Detected on CT Images: From the Fleischner Society 2017. Radiology. 2017;284(1):228-243. Laboratory Results WBC 4.76 10^3/uL (3.29-11.43) 04/17/23 05:29 RBC 4.33 10^6/uL (3.85-5.65) 04/17/23 05:29 Hgb 13.30 g/dL (11.27-16.99) 04/17/23 05:29 Hct 39.4 % (37-53) 04/17/23 05:29 MCV 91.0 fl (82-101) 04/17/23 05:29 MCH 30.7 pg (27-33) 04/17/23 05:29 MCHC 33.8 g/dL (30-55) 04/17/23 05:29 RDW 12.3 % (12.1-15.1) 04/17/23 05:29 Plt Count 305 10^3/cmm (157-399) 04/17/23 05:29 MPV 8.9 fL (7.4-10.4) 04/17/23 05:29 Neut % (Auto) 56.5 % 04/17/23 05:29 Lymph % (Auto) 30.3 % 04/17/23 05:29 [place] % (Auto) 9.7 % 04/17/23 05:29 Eos % (Auto) 2.7 % 04/17/23 05:29 Baso % (Auto) 0.6 % 04/17/23 05:29 Neut # (Auto) 2.69 10^3/uL (1.8-7.7) 04/17/23 05:29 Lymph # (Auto) 1.4 10^3/uL (0.8-4.8) 04/17/23 05:29 [place] # (Auto) 0.5 10^3/uL (0.2-0.9) 04/17/23 05:29 Eos # (Auto) 0.1 10^3/uL (0.0-0.8) 04/17/23 05:29 Baso # (Auto) 0.0 10^3/uL (0.0-0.1) 04/17/23 05:29 Nucleated RBC % (auto) 0 % 04/17/23 05:29 Nucleated RBCs # 0.0 /100WBC 04/17/23 05:29 PT 12.30 SECONDS (12.1-14.9) 04/16/23 14:11 INR 0.89 (0.8-1.2) 04/16/23 14:11 APTT 70.0 SECONDS (23.9-36.7) H 04/17/23 05:29 D-Dimer 0.33 ug/mLFEU (0-0.59) 04/16/23 14:11 Sodium 134 mmol/L (136-145) L 04/17/23 05:29 Potassium 3.9 mmol/L (3.5-5.1) 04/17/23 05:29 Chloride 101 mmol/L (98-107) 04/17/23 05:29 Carbon Dioxide 25 mmol/L (22-29) 04/17/23 05:29 Anion Gap 11.9 (5-19) 04/17/23 05:29 BUN 14 mg/dL (6-20) 04/17/23 05:29 Creatinine 0.8 mg/dL (0.7-1.2) 04/17/23 05:29 GFR Calculation 103.2 mL/min (90-130) 04/17/23 05:29 Glucose 105 mg/dL (65-115) 04/17/23 05:29 Calculated Osmolality 279 mOsm/kg (285-295) L 04/17/23 05:29 Calcium 9.0 mg/dL (8.5-10.5) 04/17/23 05:29 Magnesium 2.2 mg/dL (1.7-2.3) 04/16/23 16:09 Total Bilirubin 0.5 mg/dL (0.15-1.2) 04/17/23 05:29 AST 20 U/L (0-40) 04/17/23 05:29 ALT 30 U/L (0-41) 04/17/23 05:29 Alkaline Phosphatase 111 U/L (40-130) 04/17/23 05:29 Troponin T Baseline 8 ng/L (0-15) 04/16/23 14:11 Troponin T 120 Minute 8.63 ng/L (0-15) 04/16/23 16:09 Delta Troponin T 0.63 ABS# (0-10) 04/16/23 16:09 Troponin T Hi Sens 6Hr 9.25 ng/L (0-15) 04/16/23 19:58 Troponin T Hi Sens 6Hr Delta 1.25 ng/L (0-12) 04/16/23 19:58 Total Protein 6.7 g/dL (6.6-8.7) 04/17/23 05:29 Albumin 3.9 g/dL (3.5-5.2) 04/17/23 05:29 Globulin 2.8 g/dL (1.3-4.6) 04/17/23 05:29 Vitals Last Vital Signs Temp 98.0 F 04/17/23 08:17 Pulse 67 04/17/23 08:17 Resp 26 H 04/17/23 08:17 BP 119/85 04/17/23 08:17 Pulse Ox 93 04/17/23 08:17 O2 Del Method Room Air 04/16/23 22:58 Discharge Plan Discharge Patient Disposition: Home Condition: Stable Prescriptions: New magnesium L-lactate [Magtab] 84 mg Tablet Extended Release 168 mg PO DAILY Qty: 30 0RF Continued aspirin [Adult Aspirin Regimen] 81 mg tablet,delayed release (DR/EC) 243 mg PO DAILY atorvastatin 80 mg tablet 80 mg PO DAILY clopidogrel 75 mg tablet 75 mg PO DAILY metoprolol succinate 50 mg tablet extended release 24 hr 50 mg PO DAILY nitroglycerin 0.4 mg tablet, sublingual 0.4 mg sublingual Q5M PRN (Reason: chest pain) Qty: 30 0RF Rx Instructions: do not exceed 3 doses per episode cyclobenzaprine 5 mg tablet 5 mg PO BEDTIME PRN (Reason: muscle spasm) Qty: 30 0RF Discharge Orders: Discharge Order (Routine); Ordered 04/17/23 Ordered By: Matty Hammer Referrals: Winter Modi FNP [Primary Care Provider] - 4-7 days (We have notified your physician's clinic of the need for a follow-up appointment to be scheduled. If you have not heard from them within the next 2 business days, please call them directly. You may also reach out to our animal ride manager at [phone] and she can assist you.) Abby Ely FNP [Nurse Practitioner] - 04/21/23 (We have notified your physician's clinic of the need for a follow-up appointment to be scheduled. If you have not heard from them within the next 2 business days, please call them directly. You may also reach out to our animal ride manager at [phone] and she can assist you.) Discharge Diet: Cardiac Discharge Activity: Limit activity as instructed Patient Instructions: Magnesium (By mouth), Chest Pain (DC), Low Fat Diet (DC), Chest Pain Stoplight Activity Restrictions/Additional Instructions: Continue aspirin, Plavix, metoprolol, atorvastatin. Limit activity as instructed by cardiology including taking next week off work. Follow-up with cardiology nurse nevilleer in office on for reassessment and to arrange for nuclear monitoring technician. Seek medical attention in case of any worsening or new concerning symptoms. Follow-up with your primary provider regarding multiple lung nodules, largest up to 6 mm in size and arrangement of follow-up CT scans. Stand Alone Forms: Work/School Release Discharge Attestations Time Spent in Discharge Care*: greater than 30 min Quality Metrics Clinical Quality Measures [ No reported AMI, CVA or VTE this stay] Coding Level of Care Code 38446 Diagnoses Atherosclerotic heart disease of [place] coronary artery with other forms of angina pectoris I25.118 Recent myocardial infarction Ventricular arrhythmia I49.9 Dyslipidemia E78.5
[2023-04-17 12:51] VITALS: BP 145/94
[2023-04-17 13:27] VITALS: BP 145/94; PULSE 77; RESP 17; TEMP 36.9; O2SAT 96
[2023-04-17 14:01] VITALS: BP 145/94; PULSE 77; RESP 17; TEMP 36.9; O2SAT 96
--- NOTE | 2023-04-17 14:33 | P.PN_ITS ---
Subjective Subjective: We received the medical records from the [facility] in [facility]. Patient had a cardiac catheterization on 03/26/2023. He was found to have around 99% mid LAD lesion which was intervened. There was a 90% lesion one of the small diagonal branches which was left alone. There was a 70% lesion in the PLV branch of the right coronary artery. Minimal plaques in the other vessels. The patient is currently pain-free. Medications: Medication Review Details: As mentioned before. Vitals/I&O/Wt Last Vital Signs Temp 98.4 F 04/17/23 14:01 Pulse 77 04/17/23 14:01 Resp 17 04/17/23 14:01 BP 145/94 04/17/23 14:01 Pulse Ox 96 04/17/23 14:01 O2 Del Method Room Air 04/16/23 22:58 04/16/23 04/17/23 04/17/23 22:59 06:59 14:59 Intake Total 529.977 / 529.977 929.967 / 1459.944 459.117 / 459.117 Balance 529.977 / 529.977 929.967 / 1459.944 459.117 / 459.117 Weight last 48 hrs Weight 190 lb Physical Exam Narrative: GENERAL: The patient is alert and oriented times three. Not in any acute distress. HEENT: No significant pallor, icterus or lymphadenopathy.Oral cavity: There are no mucous membrane lesions. NECK: Trachea appears to be central. No masses noted. No JVD or thyromegaly appreciated. RESPIRATORY: Chest is symmetrical. No intercostals muscle retraction or any accessory muscle activation. There is no chest wall tenderness. Breath sounds are heard bilaterally. No rales or rhonchi heard. No evidence of any consolidation. BREASTS: Deferred. HEART: The heart sounds are normal. No S3 or S4. No significant murmurs. No pericardial rub ABDOMEN: No vessel pulsations or distention. No tenderness. No organomegaly appreciated. Bowel sounds are normally heard. : Deferred. RECTAL: Deferred. LYMPHATIC: No lymphadenopathy noted in the neck. EXTREMITIES: No edema or cyanosis. No clubbing. He has a small knot in the right groin. No bruit MUSCULOSKELETAL: No acute joint deformities or swelling SKIN: There are no significant rashes or ecchymosis NEUROPSYCHIATRIC: The patient is alert and oriented x3. Appears to be in a good mood. No tremors or rigidity noted. Data 04/17/23 05:29 04/17/23 05:29 Other Labs: Laboratory Last Values WBC 4.76 10^3/uL (3.29-11.43) 04/17/23 05:29 RBC 4.33 10^6/uL (3.85-5.65) 04/17/23 05:29 Hgb 13.30 g/dL (11.27-16.99) 04/17/23 05:29 Hct 39.4 % (37-53) 04/17/23 05:29 MCV 91.0 fl (82-101) 04/17/23 05:29 MCH 30.7 pg (27-33) 04/17/23 05:29 MCHC 33.8 g/dL (30-55) 04/17/23 05:29 RDW 12.3 % (12.1-15.1) 04/17/23 05:29 Plt Count 305 10^3/cmm (157-399) 04/17/23 05:29 MPV 8.9 fL (7.4-10.4) 04/17/23 05:29 Neut % (Auto) 56.5 % 04/17/23 05:29 Lymph % (Auto) 30.3 % 04/17/23 05:29 [place] % (Auto) 9.7 % 04/17/23 05:29 Eos % (Auto) 2.7 % 04/17/23 05:29 Baso % (Auto) 0.6 % 04/17/23 05:29 Neut # (Auto) 2.69 10^3/uL (1.8-7.7) 04/17/23 05:29 Lymph # (Auto) 1.4 10^3/uL (0.8-4.8) 04/17/23 05:29 Hand # (Auto) 0.5 10^3/uL (0.2-0.9) 04/17/23 05:29 Eos # (Auto) 0.1 10^3/uL (0.0-0.8) 04/17/23 05:29 Baso # (Auto) 0.0 10^3/uL (0.0-0.1) 04/17/23 05:29 Nucleated RBC % (auto) 0 % 04/17/23 05:29 Nucleated RBCs # 0.0 /100WBC 04/17/23 05:29 PT 12.30 SECONDS (12.1-14.9) 04/16/23 14:11 INR 0.89 (0.8-1.2) 04/16/23 14:11 APTT 70.0 SECONDS (23.9-36.7) H 04/17/23 05:29 D-Dimer 0.33 ug/mLFEU (0-0.59) 04/16/23 14:11 Sodium 134 mmol/L (136-145) L 04/17/23 05:29 Potassium 3.9 mmol/L (3.5-5.1) 04/17/23 05:29 Chloride 101 mmol/L (98-107) 04/17/23 05:29 Carbon Dioxide 25 mmol/L (22-29) 04/17/23 05:29 Anion Gap 11.9 (5-19) 04/17/23 05:29 BUN 14 mg/dL (6-20) 04/17/23 05:29 Creatinine 0.8 mg/dL (0.7-1.2) 04/17/23 05:29 GFR Calculation 103.2 mL/min (90-130) 04/17/23 05:29 Glucose 105 mg/dL (65-115) 04/17/23 05:29 Calculated Osmolality 279 mOsm/kg (285-295) L 04/17/23 05:29 Calcium 9.0 mg/dL (8.5-10.5) 04/17/23 05:29 Magnesium 2.2 mg/dL (1.7-2.3) 04/16/23 16:09 Total Bilirubin 0.5 mg/dL (0.15-1.2) 04/17/23 05:29 AST 20 U/L (0-40) 04/17/23 05:29 ALT 30 U/L (0-41) 04/17/23 05:29 Alkaline Phosphatase 111 U/L (40-130) 04/17/23 05:29 Troponin T Baseline 8 ng/L (0-15) 04/16/23 14:11 Troponin T 120 Minute 8.63 ng/L (0-15) 04/16/23 16:09 Delta Troponin T 0.63 ABS# (0-10) 04/16/23 16:09 Troponin T Hi Sens 6Hr 9.25 ng/L (0-15) 04/16/23 19:58 Troponin T Hi Sens 6Hr Delta 1.25 ng/L (0-12) 04/16/23 19:58 Total Protein 6.7 g/dL (6.6-8.7) 04/17/23 05:29 Albumin 3.9 g/dL (3.5-5.2) 04/17/23 05:29 Globulin 2.8 g/dL (1.3-4.6) 04/17/23 05:29 A&P Assessment and plan (1) Atherosclerotic heart disease of [place] coronary artery with other forms of angina pectoris: Patient's chest symptoms are somewhat atypical. After reviewing the medical records from the [facility], it was thought to be appropriate to continue the medical treatment. May consider a Myocardial perfusion imaging, if he has recurrence of chest pain. This may be done as an outpatient. (2) Recent myocardial infarction: The echocardiogram was reviewed. LV ejection fraction was found to be within normal limits. (3) Ventricular arrhythmia: Patient is on metoprolol. I may add Mag-Tab SR 84 mg 2 tablets daily. He will be closely monitored on telemetry. (4) Dyslipidemia: May continue on the current medications. Plan Other problems are History of cervical fusion and chronic neck pain Remote history of smoking abuse Since the patient is remaining stable, may be discharged home on the current medications. I may see him in the office in 1 month. Advised to contact our office or come back to the hospital, if he has significant recurrence of chest pains Attestations Medical Necessity Statement*: Possible discharge home today Coding Level of Care Code 48158 Diagnoses Atherosclerotic heart disease of [place] coronary artery with other forms of angina pectoris I25.118 Recent myocardial infarction Ventricular arrhythmia I49.9 Dyslipidemia E78.5
== END 2023-04-17 14:04 | disposition home or self-care (01) ==
LOC: ER 14:30 → CSU 16:36
PROVIDERS: Internal Medicine Cardiovascular Disease; Admitting Provider Internal Medicine; Emergency Provider Family Medicine; PCP Nurse Practitioner; Visit Provider Internal Medicine
DX: I25.118 Atherosclerotic heart disease of native coronary artery with other forms of angina pectoris (principal); I25.2 Old myocardial infarction; I49.9 Cardiac arrhythmia, unspecified; E78.5 Hyperlipidemia, unspecified; Z87.891 Personal history of nicotine dependence; I45.10 Unspecified right bundle-branch block; Z98.1 Arthrodesis status; Z95.5 Presence of coronary angioplasty implant and graft
CPT/HCPCS: 36415; 71275; 74175; 80053; 83735; 84484; 85025; 85378; 85610; 85730; 93005; 93306; 96365; 96366; 96375; 96376; 99285; G0378; J1644; J2060; J2270; Q9967

== ENCOUNTER → 2023-05-02 15:12 | Outpatient (BNVA) | payer SELFPAY | PROVIDERS: PCP Nurse Practitioner; Visit Provider Nurse Practitioner Family | DX: R07.89 Other chest pain (principal) | CPT/HCPCS: 93005 ==